=== PATIENT | female | born 1995 | race African-American/Black ===

== ENCOUNTER 2017-10-13 15:18 | Emergency (ER) | payer OTHER, SELFPAY | END 2017-10-13 16:56 | disposition home or self-care (01) | LOC: BURERS 15:18 | DX: N39.0 Urinary tract infection, site not specified (principal); N94.6 Dysmenorrhea, unspecified; D57.3 Sickle-cell trait; F17.210 Nicotine dependence, cigarettes, uncomplicated | CPT/HCPCS: 99283 ==

== ENCOUNTER 2021-02-21 07:47 | Emergency (ER) | payer OTHER ==
[2021-02-21] MEDS ORDERED: Acetaminophen 500 MG TAB ONE (07:51)
[2021-02-21 19:44] LABS: SARS-CoV-2 PCR by NAA DETECTED (NotDetected)
== END 2021-02-21 08:15 | disposition home or self-care (01) ==
LOC: BURERS 07:47
DX: U07.1 COVID-19 (principal); F17.210 Nicotine dependence, cigarettes, uncomplicated
CPT/HCPCS: 99285; U0003; U0005

== ENCOUNTER 2021-02-22 23:47 | Emergency (ER) | payer OTHER ==
[2021-02-23] MEDS ORDERED: Ibuprofen 800 MG TAB ONE (00:14)
== END 2021-02-23 00:10 | disposition home or self-care (01) ==
LOC: BURERS 23:47
DX: U07.1 COVID-19 (principal); F17.210 Nicotine dependence, cigarettes, uncomplicated
CPT/HCPCS: 99283

== ENCOUNTER 2021-05-18 23:08 | Emergency (ER) | payer OTHER | END 2021-05-18 23:53 | disposition home or self-care (01) | LOC: BURERS 23:08 | DX: J06.9 Acute upper respiratory infection, unspecified (principal); F17.210 Nicotine dependence, cigarettes, uncomplicated | CPT/HCPCS: 87804; 99283 ==

== ENCOUNTER 2022-10-26 23:33 | Emergency (ER) | payer OTHER, SELFPAY ==
[2022-10-26] MEDS ORDERED: Ibuprofen 800 MG TAB ONE (23:50)
== END 2022-10-27 00:32 | disposition home or self-care (01) ==
LOC: BURERS 23:33
DX: J02.9 Acute pharyngitis, unspecified (principal); F17.210 Nicotine dependence, cigarettes, uncomplicated
CPT/HCPCS: 87081; 87430; 87804; 99283

== ENCOUNTER 2023-12-25 08:56 | Emergency (ER) | payer BC, OTHER, SELFPAY ==
[2023-12-25] MEDS ORDERED: Ibuprofen 800 MG TAB ONE (09:25)
== END 2023-12-25 09:45 | disposition home or self-care (01) ==
LOC: BURERS 08:56
DX: M65.842 Other synovitis and tenosynovitis, left hand (principal); F17.210 Nicotine dependence, cigarettes, uncomplicated